=== PATIENT | female | born 1980 | race American Indian/Alaskan Native ===

== ENCOUNTER 2019-02-22 21:39 | Emergency (ER) | payer BC ==
[2019-02-22 22:03] VITALS: BP 129/84
[2019-02-22] MEDS ORDERED: TORADOL IM ONE (22:29)
[2019-02-22] MEDS ORDERED: DELTASONE PO ONE (22:29)
[2019-02-22] MEDS ORDERED: FLEXERIL PO ONE (22:29)
--- NOTE | 2019-02-22 22:36 | Emergency Department Report ---
Upper Extremity - [facility] Chief Complaint: Extremity Injury, Upper Stated Complaint: LEFT ARM PAIN Time Seen by Provider: 02/22/19 22:29 Upper Extremity: Left Arm Occurred When: 3 Days Mechanism: Unsure Symptoms: Yes Pain with Movement, Yes Limited Range of Movement, Yes Numbness, No Deformity, No Weakness, No Swelling, No Bruising/Ecchymosis, No Laceration or Abrasion Other History: pt advises that she woke up with left arm tingling and burning x 3 days denies fall injury or trauma, pain radiates from neck to left hand there is no cp no sob no back pain no n/v no diaphoresis no cardiac hx ED Review of Systems ROS: Stated complaint: LEFT ARM PAIN Other details as noted in HPI Constitutional: denies: chills, fever Eyes: denies: eye pain, eye discharge, vision change ENT: denies: ear pain, throat pain Respiratory: denies: cough, shortness of breath, wheezing Cardiovascular: denies: chest pain, palpitations, dyspnea on exertion, paroxysmal nocturnal dyspnea Endocrine: no symptoms reported Gastrointestinal: denies: abdominal pain, nausea, vomiting, diarrhea Genitourinary: denies: urgency, dysuria, discharge Musculoskeletal: myalgia, other (left arm and shoulder pain tingling left latral neck muscle tenderness ) Skin: denies: rash, lesions Neurological: denies: headache, weakness, paresthesias Psychiatric: denies: anxiety, depression Hematological/Lymphatic: denies: easy bleeding, easy bruising ED Past Medical Hx - Past Medical History Previous Medical History?: No - Surgical History Past Surgical History?: Yes Additional Surgical History: X 1 - Social History Smoking Status: Current Every Day Smoker Substance Use Type: None - Medications Home Medications: Home Medications Medication Instructions Recorded Confirmed Last Taken Type Acetaminophen/Codeine [Tylenol 1 tab PO Q6H PRN #12 tab 02/22/19 Unknown Rx /Codeine # 3 tab] Diclofenac EC [Voltaren] 25 mg PO Q8HR PRN #30 tablet 02/22/19 Unknown Rx methOCARBAMOL [Robaxin TAB] 500 mg PO Q8H PRN #30 tablet 02/22/19 Unknown Rx predniSONE [Deltasone] 40 mg PO QDAY 5 Days #10 tab 02/22/19 Unknown Rx Upper Extremity Exam - Exam General: Vital signs noted. No distress. Alert and acting appropriately. Head and Torso: No HEENT Abnormality, No Neck Tenderness, No Chest/Lungs Abnormality, No Abdominal Tenderness, No Back Tenderness Shoulder Exam: Yes Shoulder Tenderness, Yes Normal Range of Motion in Shoulder, Yes AC Joint Tenderness, No Clavicle Tenderness, No Shoulder Deformity Arm Exam: Yes Arm/Humerus Tenderness, No Arm Deformity Elbow: Yes Normal Range of Motion in Elbow, No Elbow Tenderness, No Elbow Deformity Forearm: Yes Forearm Tenderness, Yes Pain with Pronation, Yes Pain with Supination, No Forearm Deformity Wrist: Yes Normal ROM in Wrist, No Wrist Tenderness, No Wrist Deformity, No Snuffbox Tenderness, No Pain with Axial Thumb Compression Hand: Yes Normal ROM in Digit(s), No Hand Tenderness, No Hand Deformity, No Digit Tenderness, No Digit(s) Deformity, No Tendon Dysfunction CMS Exam: Yes Normal Distal Pulses, Yes Normal Capillary Refill, Yes Normal Distal Sensation, No Broken Skin ED Course Vital Signs 02/22/19 22:00 Temperature 98.8 F Pulse Rate 92 H Respiratory 14 Rate Blood Pressure 129/84 O2 Sat by Pulse 99 Oximetry ED Medical Decision Making - Radiology Data Radiology results: report reviewed, image reviewed Ordering Physician: SAMANTHA MARS III, MD Date of Service: 02/22/19 Procedure(s): XR spine cervical 2-3V Accession Number(s): [id number] cc: SAMANTHA MARS III, MD Fluoro Time In Minutes: CERVICAL SPINE 5 VIEWS INDICATION / CLINICAL INFORMATION: neck pain. Left arm pain for one week. COMPARISON: None available. FINDINGS: VERTEBRAE: No acute fracture. No significant malalignment. DISC SPACES / FACET JOINTS:No significant abnormality. PARASPINAL SOFT TISSUES:No significant abnormality. ADDITIONAL FINDINGS: None. Signer Name: Felice Haynes MD Signed: 02/22/2019 10:55 PM Workstation Name: [id number] Transcribed By: DT Dictated By: Balta Haynes MD Electronically Authenticated By: Balta Haynes MD Signed Date/Time: 02/22/192254 DD/ 52 TD/TT: - Medical Decision Making cervical xray is normal, pain is reduced to 0/10 , this is radiculopathy, plan, wrist splint, nsaids, steroids, muscle relaxants, follow up with ortho in 2-3 days. pt verbalized agreement and understanding of discharge plan. Critical care attestation.: If time is entered above; I have spent that time in minutes in the direct care of this critically ill patient, excluding procedure time. ED Disposition Clinical Impression: Radiculopathy of arm Disposition: - TO HOME OR SELFCARE Is pt being admited?: No Does the pt Need Aspirin: No Condition: Stable Instructions: Cervical Radiculopathy (ED) Prescriptions: predniSONE [Deltasone] 40 mg PO QDAY 5 Days #10 tab methOCARBAMOL [Robaxin TAB] 500 mg PO Q8H PRN #30 tablet PRN Reason: Spasms Acetaminophen/Codeine [Tylenol /Codeine # 3 tab] 1 tab PO Q6H PRN #12 tab PRN Reason: Pain , Severe (7-10) Diclofenac EC [Voltaren] 25 mg PO Q8HR PRN #30 tablet PRN Reason: pain Referrals: JOSE MARIA LOCKETT [Primary Care Provider] - 3-5 Days VINCENZO FOY MD [Staff Physician] - 3-5 Days Forms: Work/School Release Form(ED) Time of Disposition: 23:47
--- NOTE | 2019-02-22 22:59 | XRay Report ---
CERVICAL SPINE 5 VIEWS INDICATION / CLINICAL INFORMATION: neck pain. Left arm pain for one week. COMPARISON: None available. FINDINGS: VERTEBRAE: No acute fracture. No significant malalignment. DISC SPACES / FACET JOINTS:No significant abnormality. PARASPINAL SOFT TISSUES:No significant abnormality. ADDITIONAL FINDINGS: None. Signer Name: Felice Haynes MD Signed: 02/22/2019 10:55 PM Workstation Name: [id number]
== END 2019-02-23 00:10 | disposition home or self-care (01) ==
LOC: ED 21:39
DX: M54.12 Radiculopathy, cervical region (principal); F17.200 Nicotine dependence, unspecified, uncomplicated; Z79.899 Other long term (current) drug therapy
CPT/HCPCS: 72040; 96372; 99283; J1885; J7512